=== PATIENT | male | born 1995 | race Caucasian/White ===

== ENCOUNTER 2024-08-10 10:04 | Outpatient (AMB) | payer BC, MEDICAID, SELFPAY ==
--- NOTE | 2024-08-10 10:24 | MHC.OFFWIV ---
Intake Vital Signs 08/10/24 10:27 Height 5 ft 7 in Weight 192 lb BMI 30.1 BP 110/70 Blood Pressure Location Rt brachial Position Sitting Pulse 100 Pulse Source Pulse Oximeter Temp 98.7 F Temp Source Oral Pulse Oximetry (%) 99 Oxygen Delivery Method Room Air Intake Visit Reasons: [employer]-?strep throat Intake Note: Patient here for sore throat that has been present for 2-3 days. Patient Tobacco Use Status: Never used Tobacco Allergies No Known Allergies Allergy (Verified 08/10/24 10:28) Do you need a note to return to daycare/school/sports/work: No HPI HPI Comments History of Present Illness Details History - The patient is a 28-year-old male presenting with a sore throat. - The sore throat has been progressively worsening, with onset several days ago. - Observation of white spots on the throat, suggesting bacterial pharyngitis. - No fever or cough and no known strep throat exposure have been experienced. - Absence of ear pain, headaches, and fatigue. Occasional inhaler use for asthma. - No shortness of breath, wheezing, or lower respiratory issues at present. - pt's dad states his son is susceptible to getting strep throat. Physical Exam General: Cooperative, healthy appearing, comfortable and no acute distress Orientation/consciousness: Patient oriented x3 Limitations: No limitations Head: Normal to inspection Ears: Right ear looks really red and irritated, left ear normal Nose: Normal external nose present, Normal nares present and No nasal discharge present Face and sinus: Normal facial exam and Yes sinuses nontender Mouth: Normal oral and palatal mucosa present and moist mucous membranes Throat: Yes tonsils normal, Yes uvula midline. Posterior oropharynx erythema with white spots visible Eyes: Appearance normal, both eyes and all related structures Neck: Normal visual inspection Respiratory: Normal respiratory effort, able to speak in complete sentences, No respiratory distress, not tachypneic, no tripod positioning and no use of accessory muscles Skin: No rashes or lesions noted Neuro: Patient oriented x3 Extremities: Normal to inspection and Yes no clubbing, cyanosis or edema PFSH Social History Patient Tobacco Use Status: Never used Tobacco Review of Systems Const All systems reviewed & are unremarkable except as noted in HPI and below Physical Exam Vital Signs: Last Vital Signs Temp 98.7 F 08/10/24 10:27 Pulse 100 08/10/24 10:27 BP 110/70 08/10/24 10:27 Pulse Ox 99 08/10/24 10:27 Oxygen Delivery Method Room Air 08/10/24 10:27 BMI result Body Mass Index 30.1 Results AMB Rapid Strep AMB Rapid Strep Negative Last Edit by ROQUE Paez on 08/10/24 10:42 Assessment & Plan Assessment & Plan (1) Strep pharyngitis: Code(s): J02.0 - Streptococcal pharyngitis Plan: Centor Score 3, 28-35% probability of strep pharyngitis, Rapid strep negative however I will treat based on Centor Criteria. The prescription of amoxicillin was made for the management of suspected bacterial pharyngitis, with advice provided to avoid sharing items like drinks and utensils to limit transmission risk. Instructions were given to complete the full course of antibiotics. The patient's asthma history was acknowledged, with no further intervention needed beyond his existing as-needed inhaler use. Emphasis was placed on symptom management, including using cool liquids for relief, with the understanding that no follow-up or additional diagnostic measures were required at the current time. Patient was informed and verbally consented to the use of an ambient scribe for clinic note documentation during this visit Medications: New amoxicillin 500 mg PO Q12H 20 tabs 0RF Coding Level of Care Code New Pt Level 3 (71226) Diagnoses Strep pharyngitis J02.0
[2024-08-10 10:27] VITALS: BP 110/70; PULSE 100; TEMP 37.1; O2SAT 99; BMI 30.1
== END 2024-08-10 10:40 | disposition home or self-care (01) ==
PROVIDERS: PCP Pediatrics; Visit Provider Physician Assistant
DX: J02.0 Streptococcal pharyngitis (principal); Z13.9 Encounter for screening, unspecified

== ENCOUNTER → 2024-08-10 10:04 | Outpatient (BNVA) | payer BC, MEDICAID, SELFPAY | PROVIDERS: PCP Pediatrics; Visit Provider Physician Assistant | DX: J02.0 Streptococcal pharyngitis (principal) | CPT/HCPCS: 87880 ==

== ENCOUNTER 2025-05-20 07:03 | Outpatient (REF) | payer BC, MEDICAID, SELFPAY ==
--- NOTE | ~2025-05-20 | XR_ITS ---
EXAMINATION: XR CHEST 2 VIEWS HISTORY: R05.9 - Cough, unspecified COMPARISON: There are no prior studies available for comparison. FINDINGS: PA and lateral views of the chest are submitted. The lungs are expanded and clear. There is no pleural effusion, pneumothorax, or pulmonary vascular congestion. The heart is normal in size. The bones are intact. XR/XR chest 2V IMPRESSION: Normal examination of the chest. Electronically signed by: Vitaly Veliz MD 05/20/2025 08:45 AM EDT
== END 2025-05-20 07:04 | disposition home or self-care (01) ==
LOC: HO.HMGCX 07:03
PROVIDERS: PCP Internal Medicine; Visit Provider Physician Assistant
DX: R07.89 Other chest pain (principal); R05.2 Subacute cough
CPT/HCPCS: 71046

== ENCOUNTER 2025-05-20 07:03 | Outpatient (AMB) | payer BC, MEDICAID, SELFPAY ==
--- NOTE | 2025-05-20 07:05 | MHC.OFFWIV ---
Intake Vital Signs 05/20/25 07:08 Height 5 ft 7 in Weight 200 lb BMI 31.3 BP 110/62 Blood Pressure Location Rt brachial Position Sitting Respiration 17 Pulse 97 Pulse Source Pulse Oximeter Temp 98.1 F Temp Source Oral Pulse Oximetry (%) 98 Oxygen Delivery Method Room Air Intake Visit Reasons: EP Pain in rib area when breathing, cough Intake Note: Pt is here today c/o pain in rib area when breathing and a cough x3wks Patient Tobacco Use Status: Never used Tobacco Allergies No Known Allergies Allergy (Verified 08/10/24 10:28) HPI HPI Comments History of Present Illness Details History - The patient is a 29-year-old male presenting with a persistent cough and right-sided rib pain. - The cough began approximately three weeks ago following a family illness, with some family members still experiencing symptoms. - The patient reports intense pain around the right side of the ribs, exacerbated by movements such as sitting up, laying down, and coughing. - The pain does not worsen with palpation, suggesting a possible muscle strain from coughing. - The patient denies fever but reports occasional phlegm production with cough. - The patient has a history of Diabetes Mellitus Type 1 and seasonal asthma, with occasional use of an inhaler for asthma symptoms. Has used inhaler for cough but doesn't help. Physical Exam General: Cooperative, healthy appearing, comfortable and no acute distress Orientation/consciousness: Patient oriented x3 Limitations: No limitations Head: Normal to inspection Ears: Hearing grossly normal bilaterally, external ears normal and TM's normal bilaterally Nose: Normal external nose present, Normal nares present and No nasal discharge present Face and sinus: Normal facial exam and Yes sinuses nontender Mouth: Normal oral and palatal mucosa present and moist mucous membranes Throat: Yes tonsils normal, Yes uvula midline. Posterior oropharynx erythema, no exudates Eyes: Appearance normal, both eyes and all related structures Neck: Normal visual inspection, full ROM Chest: TTP right side midaxillary ribs around T7 Respiratory: Clear to auscultation bilaterally. Normal respiratory effort, able to speak in complete sentences, Actively coughing, no respiratory distress, not tachypneic, no tripod positioning and no use of accessory muscles Cardiovascular: Regular rate and rhythm. Normal S1 and S2 Skin: No rashes or lesions noted Neuro: Patient oriented x3 Extremities: Normal to inspection and Yes no clubbing, cyanosis or edema Review of Systems - Respiratory: Reports persistent cough and occasional phlegm production; denies fever - Musculoskeletal: Reports right-sided rib pain exacerbated by movement; denies pain on palpation - Endocrine: Reports history of Diabetes Mellitus Type 1; denies other autoimmune conditions All systems reviewed and are unremarkable except as noted in HPI [facility] Social History Patient Tobacco Use Status: Never used Tobacco Physical Exam Vital Signs: Last Vital Signs Temp 98.1 F 05/20/25 07:08 Pulse 97 05/20/25 07:08 Resp 17 05/20/25 07:08 BP 110/62 05/20/25 07:08 Pulse Ox 98 05/20/25 07:08 Oxygen Delivery Method Room Air 05/20/25 07:08 BMI result Body Mass Index 31.3 Assessment & Plan Assessment & Plan (1) Rib pain on right side: Code(s): R07.89 - Other chest pain Plan: Plan Patient was informed and verbally consented to the use of an ambient scribe for clinic note documentation during this visit. Cough with rib pain x 3 weeks - VSS, pt well appearing and PE remarkable for TTP right side midaxillary ribs around T7 - Differential diagnosis includes pneumonia, muscle strain or rib fx from coughing. - A chest x-ray is ordered to rule out pneumonia or other acute process. - Tessalon Perles prescribed to reduce coughing, especially at night. Can use Sudafed or similar as well. - Pain management includes monitoring and symptomatic relief with voltaren gel and Advil 600mg - Use inhaler as needed for cough (2) Subacute cough: Code(s): R05.2 - Subacute cough Plan: as above Orders: Orders XR chest 2V Today R05.9 - Cough, unspecified Medications: New benzonatate 200 mg PO BEDTIME PRN 10 caps 0RF cough Coding Level of Care Code New Pt Level 4 (22660) Diagnoses Rib pain on right side R07.89 Subacute cough R05.2
[2025-05-20 07:08] VITALS: BP 110/62; PULSE 97; RESP 17; TEMP 36.7; O2SAT 98; BMI 31.3
== END 2025-05-20 08:50 | disposition home or self-care (01) ==
PROVIDERS: PCP Pediatrics Pediatric Endocrinology; Visit Provider Physician Assistant
DX: R07.89 Other chest pain (principal); R05.2 Subacute cough

== ENCOUNTER → 2025-05-20 08:34 | Outpatient (BNV) | payer BC, MEDICAID, SELFPAY | PROVIDERS: PCP Internal Medicine; Visit Provider Radiology Diagnostic Radiology | DX: R05.9 Cough, unspecified (principal) | CPT/HCPCS: 71046 ==